=== PATIENT | female | born 1985 | race Caucasian/White ===

== ENCOUNTER 2023-04-20 15:45 | Emergency (ER) | payer MEDICAID ==
[~2023-04-20] VITALS: Ht 167.6 cm; Wt 66.0 kg
[2023-04-20 15:58] VITALS: BP 145/93; PULSE 67; RESP 18; TEMP 98.2; O2SAT 98
== END 2023-04-20 21:23 | disposition left against medical advice (07) ==
LOC: ER 15:45
DX: M79.605 Pain in left leg (principal); Z53.21 Procedure and treatment not carried out due to patient leaving prior to being seen by health care provider
CPT/HCPCS: 99281

== ENCOUNTER 2023-04-23 02:46 | Emergency (ER) | payer MEDICAID ==
[~2023-04-23] VITALS: Ht 160 cm; Wt 54.0 kg
[2023-04-23 02:56] VITALS: O2SAT 100
[2023-04-23 03:40] VITALS: BP 121/78; PULSE 79; RESP 18; TEMP 98.6
== END 2023-04-23 04:30 | disposition left against medical advice (07) ==
LOC: ER 02:55
DX: J02.9 Acute pharyngitis, unspecified (principal); Z53.21 Procedure and treatment not carried out due to patient leaving prior to being seen by health care provider; Z20.822 Contact with and (suspected) exposure to COVID-19
CPT/HCPCS: 71045; 99281; 87426; 81025; C9803